=== PATIENT | female | born 1945 | race Caucasian/White ===

== ENCOUNTER 2023-07-02 10:26 | Outpatient (CLI) | payer BC, MEDICARE | END 2023-07-02 10:27 | disposition home or self-care (01) | LOC: CSHMAMMO 10:26 | PROVIDERS: ATTEND Family Medicine | DX: Z13.820 Encounter for screening for osteoporosis (principal); N95.8 Other specified menopausal and perimenopausal disorders; M85.851 Other specified disorders of bone density and structure, right thigh; M85.852 Other specified disorders of bone density and structure, left thigh | CPT/HCPCS: 77080 ==

== ENCOUNTER 2024-05-23 10:10 | Outpatient (CLI) | payer MEDICARE ==
[2024-05-23] MEDS ORDERED: Iopamidol 300 61% 100 ML VIAL FS ONE (11:31)
== END 2024-05-23 10:11 | disposition home or self-care (01) ==
LOC: CSHCT 10:10
PROVIDERS: ATTEND Family Medicine
DX: N25.81 Secondary hyperparathyroidism of renal origin (principal)
CPT/HCPCS: 70492; 82565; Q9967

== ENCOUNTER 2025-05-19 11:28 | Outpatient (CLI) | payer MEDICARE | END 2025-05-19 11:29 | disposition home or self-care (01) | LOC: CSHMAMMO 11:28 | PROVIDERS: ATTEND Family Medicine | DX: Z12.31 Encounter for screening mammogram for malignant neoplasm of breast (principal); Z86.000 Personal history of in-situ neoplasm of breast; Z98.890 Other specified postprocedural states | CPT/HCPCS: 77063; 77067 ==